=== PATIENT | male | born 1985 | race Caucasian/White ===

== ENCOUNTER 2017-05-22 18:48 | Emergency (ER) | payer SELFPAY ==
[2017-05-22] MEDS ORDERED: KETOROLAC 30 MG/ML VIAL IVP ONE (19:03)
[2017-05-22] MEDS ORDERED: ONDANSETRON HCL IV 4 MG/2 ML VIAL IVP ONE (19:03)
--- NOTE | 2017-05-22 19:07 | Emergency Department Record ---
History of Present Illness - General Chief Complaint: Back Pain/Injury Stated Complaint: LOWER BACK PAIN Time Seen by Provider: 05/22/17 19:03 Source: Patient Mode of Arrival: Ambulatory Limitations: No limitations - History of Present Illness Initial Comments: 31 yo male presents to ED with a CC of left sided flank pain that began while at work earlier today. Patient reports his symptoms have been intermittent, denies abdominal pain, vomiting, or change in stools. Patient denies hematuria or dysuria symptoms. Patient does report a history of UTI many years ago, but he denies recent fevers, chills, or illness symptoms. Patient denies health problems at his baseline. MD Complaint: Back pain Onset/Timin -: Hour(s) Similar Symptoms Previously: No Place: Work Radiation: Other Severity scale (1-10): 10 Quality: Aching Consistency: Constant Improves With: None Worsens With: None Context: Unknown Associated Symptoms: Denies other symptoms - Related Data Previous Rx's Medication Instructions Recorded Hydrocodone/Acetaminophen [Burns 1 each PO Q6H PRN #10 tablet 05/22/17 5-325 Tablet] Allergies Allergy/AdvReac Type Severity Reaction Status Date / Time amoxicillin Allergy SWELLING Verified 05/22/17 18:54 OF THE TONGUE Travel Screening - Travel/Exposure Within Last 30 Days Have you traveled within the last 30 days?: No Review of Systems Constitutional: Denies: Chills, Fever, Malaise, Night sweats Eyes: Denies: Eye discharge, Eye pain ENT: Denies: Congestion, Ear pain, Epistaxis Respiratory: Denies: Cough, Dyspnea Cardiovascular: Denies: Chest pain, Dyspnea on exertion Endocrine: Denies: Fatigue, Heat or cold intolerance Gastrointestinal: Denies: Abdominal pain, Nausea, Vomiting Genitourinary: Denies: Incontinence, Retention, Testicular pain, Testicular mass Musculoskeletal: Reports: Back pain. Denies: Arthralgia, Gout, Joint swelling Skin: Denies: Bruising, Change in color Neurological: Denies: Abnormal gait, Confusion, Headache, Tingling Psychiatric: Denies: Anxiety Hematological/Lymphatic: Denies: Anemia, Blood Clots Past Medical History - SOCIAL HISTORY Smoking Status: Never smoker Alcohol Use: None Drug Use: None - RESPIRATORY Hx Respiratory Disorders: No - CARDIOVASCULAR Hx Cardio Disorders: No - NEURO Hx Neuro Disorders: No - GI Hx GI Disorders: Yes Hx Reflux: Yes - Hx Genitourinary Disorders: No - ENDOCRINE Hx Endocrine Disorders: No - MUSCULOSKELETAL Hx Musculoskeletal Disorders: No - PSYCH Hx Psych Problems: No - HEMATOLOGY/ONCOLOGY Hx Hematology/Oncology Disorders: No Family Medical History Any Significant Family History?: No Physical Exam - General General Appearance: Alert, Oriented x3, Cooperative, Moderate distress Limitations: No limitations - Head Head exam: Atraumatic, Normocephalic, Normal inspection Head exam detail: negative: Abrasion, Contusion, Renteria's sign, General tenderness, Hematoma, Laceration - Eye Eye exam: Normal appearance. negative: Conjunctival injection, Periorbital swelling, Periorbital tenderness, Scleral icterus - ENT Ear exam: negative: Auricular hematoma, Auricular trauma Nasal Exam: negative: Active bleeding, Discharge, Dried blood, Foreign body Mouth exam: negative: Drooling, Laceration, Muffled voice, Tongue elevation - Neck Neck exam: Normal inspection. negative: Meningismus, Tenderness - Respiratory Respiratory exam: Normal lung sounds bilaterally. negative: Respiratory distress, Rhonchi, Stridor, Wheezes - Cardiovascular Cardiovascular Exam: Regular rate, Normal rhythm, Normal heart sounds - GI/Abdominal GI/Abdominal exam: Soft. negative: Rebound, Rigid, Tenderness - Rectal Rectal exam: Deferred - exam: Deferred - Extremities Extremities exam: Normal inspection. negative: Calf tenderness, Pedal edema, Tenderness - Back Back exam: Reports: CVA tenderness (L) (mild). Denies: CVA tenderness (R) - Neurological Neurological exam: Alert, Normal gait, Oriented X3 - Psychiatric Psychiatric exam: Normal affect, Normal mood - Skin Skin exam: Normal color. negative: Abrasion Type of lesion: negative: abrasion Course Vital Signs 05/22/17 18:55 Temperature 97.6 F Pulse Rate 92 H Respiratory 18 Rate Blood Pressure 147/96 Pulse Ox 98 - Reevaluation(s) Reevaluation #1: 05/22/17 19:46 Labs reviewed, AST 64, ALT 120. UA pending. Labs are otherwise grossly unremarkable for an acute process. Reevaluation #2: 05/22/17 20:17 UA resulted, Large blood without evidence for infection. Reevaluation #3: 05/22/17 20:59 CT Abdomen and Pelvis: 1.6 mm calculus present in the left UVJ/Urinary bladder, bilateral hydronephrosis Patient reassessed and reports that he is feeling much better. Patient and his SO were updated on all results, and the patient appears stable for discharge a this time. Patient was instructed to follow-up with his PCP for re-evaluation of his hydronephrosis in 1-2 weeks. Medical Decision Making - Lab Data Result diagrams: 05/22/17 19:10 05/22/17 19:10 Disposition Disposition: Discharge Clinical Impression: Kidney stone on left side Disposition: Home, Self-Care Condition: (2) Stable Instructions: Kidney Stones (ED) Additional Instructions: Return to ED if your symptoms worsen or if you have any concerns. Burns as directed. Follow-up with Dr. Cohen in 3-5 days as directed. Follow-up with Dr. Cohen in 2-4 weeks to ensure resolution of the fluid on your kidney likely resulting from kidney stone. Prescriptions: Hydrocodone/Acetaminophen [Burns 5-325 Tablet] 1 each PO Q6H PRN #10 tablet PRN Reason: Pain - Moderate (5-7) Forms: Patient Portal Access Time of Disposition: 21:03 Quality - Quality Measures Quality Measures: N/A - Blood Pressure Screening Does Patient Have Any of the Following: No Blood Pressure Classification: Hypertensive Reading Systolic Measurement: 147 Diastolic Measurement: 96 Screening for High Blood Pressure: < First Hypertensive BP, F/U Documented > [ [id number]] First Hypertensive Follow-up Interventions: Referral to alternative/primary care provider.
[2017-05-22] MEDS ORDERED: 0.9 % SODIUM CHLORIDE 1000ML 1,000 ML IV SCH (19:15)
[2017-05-22 19:20] LABS: BASO % 0.3 % (0-6); EOS % 0.4 % (0-6); GRAN % 71.9 % (47-80); HEMATOCRIT 48.2 % (42.0-52.0); HEMOGLOBIN 17.4 gm/dl (14.0-18.0); LYMPH % 21.3 % (16-45); MEAN CELL VOLUME 80.6 fl (81-97); MEAN CORPUSCULAR HGB CONC 36.1 g/dl (32-36); MEAN PLATELET VOLUME 9.6 fl (7.4-10.4); MONO % 6.1 % (0-9); PLATELET COUNT 332 K/uL (130-400); RED BLOOD COUNT 5.98 M/uL (4.40-5.70); RED CELL DISTRIBUTION WIDTH 12.9 % (11.5-14.5); WHITE BLOOD COUNT W/O DIFF 9.2 K/uL (4.2-12.2)
[2017-05-22 19:37] LABS: ALB/GLOB RATIO 1.6 (1.1-1.8); ALBUMIN 5.4 gm/dL (3.5-5.0); ALKALINE PHOSPHATASE 68 U/L (38-126); ALT/SGPT 120 U/L (21-72); ANION GAP 11.4 (7-16); AST/SGOT 64 U/L (17-59); BILIRUBIN,TOTAL 0.97 mg/dL (0.2-1.3); BLOOD UREA NITROGEN 18 mg/dL (9-20); CARBON DIOXIDE 28.6 mmol/L (22-30); CREATININE 0.8 mg/dL (0.66-1.25); EST GLOMERULAR FILTRATION RATE > 60 ml/min; GLUCOSE,RANDOM 94 mg/dL (70-110); TOTAL PROTEIN 8.8 gm/dL (6.3-8.2)
[2017-05-22 20:04] LABS: URINE APPEARANCE CLEAR; URINE BILIRUBIN NEGATIVE (NEGATIVE); URINE BLOOD LARGE (NEGATIVE); URINE COLOR YELLOW; URINE GLUCOSE (UA) NEGATIVE (NEGATIVE); URINE KETONE NEGATIVE (NEGATIVE); URINE LEUKOCYTE ESTERASE NEGATIVE (NEGATIVE); URINE NITRITE NEGATIVE (NEGATIVE); URINE PROTEIN NEGATIVE (NEGATIVE); URINE UROBILINOGEN 0.2 E.U./dL (0.20 - 1.00)
[2017-05-22 20:11] LABS: URINE BACTERIA NONE SEEN; URINE EPITHELIAL CELLS 0 - 2 (FEW); URINE RBC 21 - 35 (NONE SEEN); URINE WBC 0 - 2 (0-2/hpf)
--- NOTE | 2017-05-24 08:05 | CT SCAN REPORT ---
DATE: 05/22/2017 at 2021. EXAM: CT SCAN OF THE ABDOMEN AND PELVIS WITHOUT CONTRAST HISTORY: Acute onset of left lower back pain. No definite injury. TECHNIQUE: Thin-collimation helical CT examination of the abdomen and pelvis is performed without intravenous contrast administration for the express purpose of evaluating the renal collecting systems for obstructing calculi. Lack of oral and intravenous contrast utilization limits evaluation of the bowel and solid viscera, respectively. COMPARISON: None. FINDINGS: The lung bases are grossly clear, and there is no pleural or pericardial effusion. The heart is not enlarged. There is diffuse decreased density of the liver relative to the spleen consistent with steatosis. No suspicious focal hepatic abnormality is seen. The pancreas, adrenal glands, and spleen are normal in appearance. The gallbladder is unremarkable, and no biliary ductal dilatation is identified. The kidneys are normal in size and position, and they are smoothly marginated. There are a few nonobstructing calculi within the right kidney, the largest of which is located within the lower pole measuring 5.0 mm in diameter. The others measure approximately 2.0 mm. No left nephrolithiasis is present. There is bilateral hydronephrosis questioned to the level of the ureteropelvic junctions. 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 In addition, there is mild left hydroureter with mild periureteral fat stranding at the mid to distal level. This mild dilatation extends to the level of the ureterovesical junction where there is a tiny calculus projecting into the bladder lumen measuring 1.6 mm. The urinary bladder is otherwise unremarkable. No pelvic mass, lymphadenopathy, or free pelvic fluid is seen. Minor fat density prominence in the inguinal canal is consistent with spermatic cord lipomas or fat within small inguinal hernia sacs. No gross bowel dilatation or bowel wall thickening. The appendix is visualized and is normal in appearance. No lytic or blastic bone lesion. IMPRESSION: 1. A 1.6 MM CALCULUS WITHIN THE LEFT VESICOURETERAL JUNCTION PROJECTING INTO THE URINARY BLADDER LUMEN WITH ASSOCIATED MILD DILATATION OF THE LEFT URETER. THERE IS BILATERAL HYDRONEPHROSIS POSSIBLY RELATING TO CHRONIC URETEROPELVIC JUNCTION OBSTRUCTIONS. 2. RIGHT NEPHROLITHIASIS. 3. HEPATIC STEATOSIS. JOB NUMBER: [id number] [facility]
== END 2017-05-22 21:13 | disposition home or self-care (01) ==
LOC: ER 18:48
DX: N20.0 Calculus of kidney (principal)
CPT/HCPCS: 99284 ×2; 96374; 96375; 85025; 80053; 81001; 74176; J1885; J2405; J7030